=== PATIENT | male | born 1980 | race Caucasian/White ===

== ENCOUNTER 2025-08-20 18:49 | Observation (INO) | payer OTHER ==
[2025-08-20 20:05] VITALS: BMI 34.6
[2025-08-20] MEDS ORDERED: Senokot S 8.6-50 MG TAB PO PRN (21:10)
[2025-08-20] MEDS ORDERED: Calcium Carbonate 500 MG ChewTAB PO PRN (21:10)
[2025-08-20] MEDS ORDERED: Melatonin 3 MG TAB PO PRN (21:10)
[2025-08-20] MEDS ORDERED: Electrolyte Replacement Protocol 1 EACH FS SCH (21:15)
[2025-08-20] MEDS ORDERED: hydrALAZINE 20 MG/ML VIAL SLOW IVP PRN (21:26)
[2025-08-21 05:41] LABS: #Basophils 0.06 10x3/uL (0.0-0.2); #Eosinophils 0.18 10x3/uL (0.0-0.7); #Monocytes 0.67 10x3/uL (0.11-0.59); #Neutrophils 5.21 10x3/uL (1.40-6.50); %Basophils 0.7 % (0.0-1.0); %Eosinophils 2.1 % (0.0-10.0); %Lymphocytes 27.1 % (21.0-51.0); %Monocytes 7.9 % (0.0-10.0); %Neutrophils 61.8 % (42.0-75.0); Hematocrit 45.7 % (42.0-52.0); Hemoglobin 15.2 g/dL (14.0-18.0); Mean Corpuscular Hemoglobin 30.6 pg (27.0-31.0); Mean Corpuscular Volume 92.0 fL (78.0-98.0); Platelet Count 198 10x3/uL (130-400); Red Blood Cell (RBC) Count 4.97 mill/uL (4.70-6.10); White Blood Cell (WBC) Count 8.44 10x3/uL (4.8-10.8)
[2025-08-21 05:54] LABS: Anion Gap 16 mmol/L (10-20); BUN (Urea Nitrogen) 11 mg/dL (8.9-20.6); Calc. Creatinine Clearance 154 mL/min (70-130); Calcium 9.6 mg/dL (7.8-10.44); Carbon Dioxide 26 mmol/L (22-29); Chloride 104 mmol/L (98-107); Glucose 111 mg/dL (70-105); Potassium 4.0 mmol/L (3.5-5.1); Sodium 142 mmol/L (136-145)
[2025-08-21] MEDS: Acetaminophen 325 MG TAB PO PRN (09:00)
[2025-08-21] MEDS: Enoxaparin 40 MG (0.4 mL) SYRINGE SC SCH (09:01)
[2025-08-21 11:53] VITALS: BP 166/103; TEMP 97.6
[2025-08-21] MEDS ORDERED: Rosuvastatin 20 MG TAB PO SCH (21:00)
== END 2025-08-21 17:04 | disposition home or self-care (01) ==
LOC: OBS 20:01
PROVIDERS: ADMIT Family Medicine; ATTEND Hospitalist
PROC: B24BZZZ Ultrasonography of Heart with Aorta (ICD-10-PCS; principal; 2025-08-21)
DX: R00.0 Tachycardia, unspecified (principal); R03.0 Elevated blood-pressure reading, without diagnosis of hypertension; E78.00 Pure hypercholesterolemia, unspecified; F32.A Depression, unspecified; Z98.52 Vasectomy status; Z90.89 Acquired absence of other organs; Z79.899 Other long term (current) drug therapy
CPT/HCPCS: 36415; 80048; 82550; 83835; 84443; 85025; 93306; G0378